=== PATIENT | female | born 1960 | race Caucasian/White ===

== ENCOUNTER → 2018-02-06 | Outpatient (CLI) | payer OTHER ==
[~2018-02-06] MED LIST: ASPIRIN EC81 M1 PO; PRILOSEC 20 MG20 MG PO; PROZAC40 MG PO; SYNTHROID50 MCG PO
== END ==
LOC: NUC 09:08
DX: N91.2 Amenorrhea, unspecified (principal); Z78.0 Asymptomatic menopausal state

== ENCOUNTER → 2019-07-14 | Outpatient (CLI) | payer OTHER | LOC: LAB 08:00 | PROVIDERS: ATTEND Family Medicine | DX: Z03.818 Encounter for observation for suspected exposure to other biological agents ruled out (principal); R59.9 Enlarged lymph nodes, unspecified; R21 Rash and other nonspecific skin eruption ==

== ENCOUNTER → 2020-02-03 | Outpatient (CLI) | payer OTHER | LOC: CAT 07:50 | PROVIDERS: ATTEND Family Medicine | DX: Z13.6 Encounter for screening for cardiovascular disorders (principal); E78.00 Pure hypercholesterolemia, unspecified; I25.10 Atherosclerotic heart disease of native coronary artery without angina pectoris ==